=== PATIENT | male | born 1975 | race Caucasian/White ===

== ENCOUNTER 2017-12-22 12:23 | Emergency (ER) | payer SELFPAY ==
[~2017-12-22] VITALS: Ht 175.2 cm; Wt 72.6 kg
[~2017-12-22 12:23] MED LIST: CIPRODEX 0.3%-7.5 ML OT; NKHM
[2017-12-22 13:26] LABS: BASO % 0.3 % (0.0-1.0); EOS # 0.1 10*3/uL (0.0-0.4); EOS % 1.3 % (1.0-4.0); HEMATOCRIT 42.7 % (42.0-52.0); HEMOGLOBIN 14.3 g/dl (14.0-18.0); LYMPH # 1.9 10*3/uL (1.3-4.4); LYMPH % 18.9 % (27.0-41.0); MEAN CELL VOLUME 91.6 fl (80.0-94.0); MEAN CORPUSCULAR HGB 30.7 pg (27.0-31.0); MEAN CORPUSCULAR HGB CONC 33.5 g/dl (33.0-37.0); MEAN PLATELET VOLUME 9.2 fl (9.6-12.3); MONO # 0.9 10*3/uL (0.1-1.0); MONO % 9.2 % (3.0-9.0); NEUT # 7.1 10*3/uL (2.3-7.9); PLATELET COUNT AUTOMATED 224 10*3/uL (130-400); RED BLOOD COUNT 4.66 10*6/uL (4.50-5.90); RED CELL DISTRI WIDTH 14.6 % (0-14.5); WHITE BLOOD COUNT 10.2 10*3/uL (4.8-10.8)
[2017-12-22 13:42] LABS: ALBUMIN 3.6 gm/dl (3.1-4.5); ALKALINE PHOSPHATASE 63 U/L (45-117); BUN 14 mg/dl (7-24); CHLORIDE 110 mmol/L (98-107); CREATININE 0.81 mg/dL (0.70-1.30); POTASSIUM 4.2 mmol/L (3.5-5.1); SGOT/AST 8 IU/L (3-35); SGPT/ALT 15 U/L (12-78); SODIUM 141 mmol/L (136-145); TOTAL PROTEIN 6.8 gm/dL (6.4-8.2)
[2017-12-22] MEDS ORDERED: AUGMENTIN 875875 MG PO (14:53)
[2017-12-22] MEDS ORDERED: IBUPROFEN600 MG PO (14:53)
== END 2017-12-22 15:32 | disposition home or self-care (01) ==
LOC: ED 12:23
PROVIDERS: Physician Assistant
DX: K02.9 Dental caries, unspecified (principal)

== ENCOUNTER 2022-09-06 06:40 | Emergency (ER) | payer BC ==
[~2022-09-06] VITALS: Wt 81.6 kg
[~2022-09-06 06:40] MED LIST changes: +AUGMENTIN 875875 MG PO; +IBUPROFEN600 MG PO
== END 2022-09-06 08:00 | disposition home or self-care (01) ==
LOC: ED 06:40
DX: T15.91XA Foreign body on external eye, part unspecified, right eye, initial encounter (principal)

== ENCOUNTER 2023-10-01 00:07 | Emergency (ER) | payer BC ==
[~2023-10-01] VITALS: Ht 177.8 cm; Wt 77.1 kg
[2023-10-01] MEDS ORDERED: CIPRO500 MG PO (12:52)
== END 2023-10-01 04:44 | disposition left against medical advice (07) ==
LOC: ED 00:07
DX: R10.31 Right lower quadrant pain (principal); N50.89 Other specified disorders of the male genital organs; Z53.21 Procedure and treatment not carried out due to patient leaving prior to being seen by health care provider

== ENCOUNTER 2023-10-01 10:19 | Emergency (ER) | payer BC ==
[~2023-10-01] VITALS: Ht 177.8 cm; Wt 77.1 kg
[2023-10-01] MEDS ORDERED: CIPRO500 MG PO (12:52)
== END 2023-10-01 12:55 | disposition home or self-care (01) ==
LOC: ED 10:19
DX: N45.1 Epididymitis (principal); N43.3 Hydrocele, unspecified; Z96.22 Myringotomy tube(s) status

== ENCOUNTER 2024-01-17 19:14 | Emergency (ER) | payer BC ==
[~2024-01-17] VITALS: Wt 79.4 kg
[~2024-01-17 19:14] MED LIST changes: +CIPRO500 MG PO
[2024-01-17] MEDS ORDERED: AMOX-CLAV 875-1 EACH PO (19:48)
[2024-01-17] MEDS ORDERED: Amoxicillin/Clavulanate Pota 875 MG TAB PO ONE (19:50)
== END 2024-01-17 20:06 | disposition home or self-care (01) ==
LOC: ED 19:14
DX: H66.91 Otitis media, unspecified, right ear (principal)